=== PATIENT | female | born 1965 | race Caucasian/White ===

== ENCOUNTER 2017-08-25 16:06 | Observation (INO) | payer MEDICAID ==
[~2017-08-25] VITALS: Ht 160 cm; Wt 110.4 kg
--- NOTE | 2017-08-25 16:29 | HISTORY AND PHYSICAL REPORT ---
Demographics: Admit date: 08/25/17 Chief complaint: left shoulder pain, chest pain and dizziness PRIMARY DIAGNOSIS: chest pain Allergies: Coded Allergies: No Known Allergies (04/19/16) History of present illness: History of present illness: 51-year-old white female with significant history of hyperlipidemia, uncontrolled diabetes, hypertension and previous tobacco use presents to internal medicine clinic for evaluation of LEFT shoulder/neck pain, chest pain and dizziness. Patient reports she was sitting at work when she had acute onset of feeling "jittery" and "not herself." She checked her blood sugar which was found to be over 300. She she began having LEFT shoulder/neck pain and "a twinge of pain in the center of my chest." She went to the employee health nurse and her blood pressure was found to be normotensive. She began to feel a little bit better with rest; however symptoms did not completely resolve. An electrocardiogram was obtained in the office which showed nonspecific ST changes and a new murmur was noted on exam. Patient is a previous smoker, quit in 2013. She denies any prior episodes of LEFT shoulder/neck pain or chest pain. She does report some exertional dyspnea. Patient was admitted to acute care with telemetry for serial electrocardiograms, enzymes and further evaluation. Past medical history: Family HX Family Hx Insignificant No Diabetes Yes CAD Yes Hypertension Yes Hyperlipidemia Yes Cancer No TB No Immunization HX Ped.Immunizations UTD Yes Past Surgical HX Previous Surgery?Y LITHOTRIPSY X2 TUBAL LIGATION Current home meds: Reported Medications CHOLECALCIFEROL (VITAMIN D3) (Vitamin D3) 1,000 IUNITS PO DAILY Ascorbic Acid (Vitamin C) 500 MG PO DAILY Sitagliptin Phosphate (Januvia) 100 MG PO DAILY Cyanocobalamin (Vitamin B-12) (Vitamin B12) 1,500 MCG PO DAILY Gemfibrozil (GEMFIBROZIL 600MG) 600 MG PO BID METFORMIN HCL (Metformin) 1,000 MG PO BID LISINOPRIL/HYDROCHLOROTHIAZIDE (Lisinopril-Hctz 20-25 MG Tab) 1 TAB PO DAILY Omeprazole (Omeprazole 20MG) 20 MG PO DAILY OXYBUTYNIN CHLORIDE (Oxybutynin 5MG Tab) 5 MG PO BID Gabapentin (Gabapentin 600MG) 600 MG PO BID CETIRIZINE HCL (Cetirizine 10MG) 10 MG PO DAILY Amitriptyline Hcl (Amitriptyline) 50 MG PO QHS PRAVASTATIN SODIUM (Pravastatin Sodium) 40 MG PO QHS ASPIRIN (Aspirin) 81 MG PO DAILY Estradiol (Estrace) 0.1 MG VG DAILY UMECLIDINIUM BROMIDE (Incruse Ellipta) 62.5 MCG IH DAILY INSULIN NPL/INSULIN LISPRO (Humalog Mix 75-25 Vial) 100 UNITS SC DAILY-DM INSULIN NPL/INSULIN LISPRO (Humalog Mix 75-25 Vial) 100 UNITS SC QHS INSULIN NPL/INSULIN LISPRO (Humalog Mix 75-25 Vial) 75 UNITS SC DAILY Social Hx: Smoking HX Tobacco Yes (previous quit 2013) Type CIGARETTES Packs/day < 1 PACK Alcohol Alcohol: No Hx of Drug Use Drug Use? No Patient's support system is good Review of systems: Constitutional No: no symptoms reported. Eyes No: no symptoms reported. Ears, Nose, Mouth, Throat No no symptoms reported Respiratory No: no symptoms reported. Cardiovascular see HPI Gastrointestinal/Abdominal No no symptoms reported Genitourinary No: no symptoms reported. Musculoskeletal No: no symptoms reported. Skin No: no symptoms reported. Neurological No: see HPI. Psychiatric No: no symptoms reported. Exam: Lab data for last 24 hours: Laboratory Tests 08/26/17 0619: Triglycerides 330 H, Cholesterol 127, LDL Cholesterol 37.0, VLDL Cholesterol 66.0 H, HDL Cholesterol 24.0 L 08/26/17 0613: POC Glucose 341 *H 08/26/17 0100: Creatine Kinase 310 H, CK-MB (CK-2) Rel Index 0.5, CK and CKMB Interp 1.5, Troponin I < 0.02 08/25/17 2157: Creatine Kinase 407 H, CK-MB (CK-2) Rel Index 0.5, CK and CKMB Interp 2.2, Troponin I < 0.02 08/25/179: POC Glucose 290 H 08/25/17 1850: Creatine Kinase 451 H, CK-MB (CK-2) Rel Index 0.6, CK and CKMB Interp 2.8, Troponin I < 0.02 08/25/17 1720: Sodium 137, Potassium 3.9, Chloride 101, Carbon Dioxide 25, BUN 41 H, Creatinine 1.8 H, Estimated Creat Clear 62, Estimated GFR (MDRD) 30 L, Glucose 248 H, Calcium 9.1, Total Bilirubin 0.2, AST 43 H, ALT 55, Alkaline Phosphatase 75, Total Protein 7.6, Albumin 3.5, Globulin 4.1 H, Albumin/ Globulin Ratio 0.9 L, TSH 2.27, WBC 9.4, RBC 4.48, Hgb 12.0 L, Hct 37.4, MCV 83.5, RDW 15.1, Plt Count 233, MPV 9.8, Gran % 71.5, Gran # 6.7, Lymphocytes % 17.5, Monocytes % 6.0, Eosinophils % 4.1, Basophils % 0.9, Lymphocytes # 1.7, Monocytes # 0.6, Eosinophils # 0.4, Basophils # 0.1, PUBS MCHC 32.4, MCH 27.0 Admission vital signs: 1ST Vital Signs Result Date Time Pulse Ox 92 08/25 1715 O2 Delivery ROOM AIR 08/25 1715 B/P 105/56 08/25 1715 Temp 98.3 08/25 1715 Pulse 105 08/25 1715 Resp 18 08/25 1715 O2 Flow Rate 2 08/25 1830 Exam General appearance: normal appearance, alert, no acute distress Eyes: anicteric ENT: mucous membranes moist Neck: normal inspection, non-tender, no carotid bruit, no JVD Cardiovascular: normal sinus rhythm, regular rate & rhythm, normal peripheral pulses, murmur, trace ankle edema Respiratory: clear to auscultation ABD: non-distended, normal bowel sounds, no rebound, soft, no tenderness Genitourinary: no dysuria, no hematuria, urine clear Extremities: moves all Musculoskeletal: equal muscle strength Skin: dry, intact, normal color Neuro: 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 Chest pain Assessment/Plan Monitor telemetry. Obtain serial electrocardiograms and enzymes. Will obtain echo. Consult cardiology. Plan: See above. at 0806
[2017-08-25 17:15] VITALS: BP 105/56
[2017-08-25 17:35] LABS: LYMPH # 1.7 K/mm3 (0.7-4.5); LYMPH % 17.5 % (10-50.0)
[2017-08-25] MEDS ORDERED: VITAMIN D1000 IU PO (17:46)
[2017-08-25] MEDS ORDERED: VITAMIN C500 M1 PO (17:47)
[2017-08-25] MEDS ORDERED: JANUVIA50 MG PO (17:47)
[2017-08-25] MEDS ORDERED: VITAMIN B122500 MC1 PO (17:48)
[2017-08-25] MEDS ORDERED: GEMFIBROZIL600 MG PO (17:49)
[2017-08-25] MEDS ORDERED: METFORMIN1000 MG PO (17:49)
[2017-08-25] MEDS ORDERED: OMEPRAZOLE20 MG PO (17:50)
[2017-08-25] MEDS ORDERED: LISINOPRIL HCTZ1 TAB PO (17:50)
[2017-08-25] MEDS ORDERED: GABAPENTIN 600600 MG PO (17:51)
[2017-08-25] MEDS ORDERED: OXYBUTYNIN5 MG PO (17:51)
[2017-08-25] MEDS ORDERED: CETIRIZINE HCL10 MG PO (17:52)
[2017-08-25] MEDS ORDERED: AMITRIPTYLINE 550 MG PO (17:53)
[2017-08-25] MEDS ORDERED: ASPIRIN 81MG TA81 MG PO (17:54)
[2017-08-25] MEDS ORDERED: PRAVACHOL 40MG40 MG PO (17:54)
[2017-08-25] MEDS ORDERED: ESTRACE0.1 MG/GM VG (17:55)
[2017-08-25] MEDS ORDERED: INCRUSE EL62.5 MCG/A IH (17:56)
[2017-08-25] MEDS ORDERED: HUMALOG MIX 75/10 ML SC ×3 (17:57→18:01)
--- NOTE | 2017-08-25 19:24 | RADIOLOGY REPORT PS360 ---
CHEST(2 VIEWS-NOT PORTABLE) HISTORY: CHEST PAIN ORDERING PHYSICIAN: Aries Watters MD PATIENT AGE: 51 years COMPARISON: 06/12/2015 FINDINGS: The cardiomediastinal silhouette and pulmonary vascularity are within normal limits. There is increased density in the right infrahilar region suggesting atelectasis or infiltrate. The remaining lungs are clear. No effusions. No acute bony anomalies. IMPRESSION: Right infrahilar infiltrate.
[2017-08-25 20:04] VITALS: BP 105/60
[2017-08-25 20:05] VITALS: BP 105/60
[2017-08-25 23:46] VITALS: BP 98/54
[2017-08-26] VITALS (17 sets, daily range): BP systolic 106–143; BP diastolic 39–98
--- NOTE | 2017-08-26 07:38 | PHARMACY CLINIC NOTE ---
Patient Demographics Patient Demographics Admission date: 08/25/17 Date: 08/26/17 Time: 0737 Allergies Coded Allergies: No Known Allergies (04/19/16) HEIGHT- FT: 5 IN: 3.00 K.[id number] VTE General Information Labs: Laboratory Tests 08/25 1720 Hematology Hgb (12.2 - 16.2 g/dL) 12.0 L Hct (37.0 - 47.0 %) 37.4 Plt Count (142 - 424 K/mm3) 233 Disclaimer The following section includes nursing documentation that has been pulled in for pharmacy review. Patient's VTE score: 2 Patient's VTE Risk: VERY LOW RISK Clinical trial participant? No VTE prophylaxis F [id number] VTE prophylaxis ordered? Yes Type of prophylaxis/treatment: [place] at 0737
--- NOTE | 2017-08-26 08:13 | ACUTE CARE PROGRESS NOTE (QUA) ---
Progress Notes Subjective Date 08/26/17 Time 0745 Note Patient has not had any further left shoulder/jaw pain or chest discomfort through the night. Serial EKGs and enzymes were unremarkable. She does have a mild cough and reports upper back pain that "feels like my lungs." Alert and oriented x3. Rate and rhythm regular. Trace ankle edema. Pulses 2+ bilaterally. LS clear and equal throughout. Abdomen soft and non-tender. Patient/family reports: no complaints Nursing reports: no complaints Objective Findings Last VS-Temp:97.7 B/P:112/61 Pulse:80 Resp:18 SaO2:97 ROOM AIR Last weight lbs:237 oz:9 K.758 Method:Bed Scales Reviewed: medications, vital signs, lab results, radiology report Assessment/Plan Problem List 1. Chest pain Assessment/Plan: Echo pending. Cardiology consult today. 2. Pulmonary infiltrate in right lung on chest x-ray Assessment/Plan: Ceftriaxone and azithromycin added to cover for possible pneumonia given her significant smoking history and chronic lung disease. Patient condition Stable Plan: continue current care This inpt stay is expected to cross 2 MNs from start of care No at 0815
--- NOTE | 2017-08-26 13:44 | CONSULT NOTE ---
Standard Demographics Patient Demo Date of Consultation: 08/26/17 Referring Provider: Aries Watters MD Reason for Consultation: chest pain PRIMARY DIAGNOSIS: chest pain Problem list Problem list: Chest pain HTN HLD DM Former tobacco user Family history of ischemic heart disease History of present illness: History of present illness: This is a 51 year old patient, admitted with CP. 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 She states she was lifting bags to sew when she had sudden onset of left shoulder and neck pain. She states this started around 7am. She was also dizzy and diaphoretic. She attributed this to the work she was doing. She states these symptoms persisted all day. Then, a few hours later, she developed pain in the center of the chest. this was a sharp sensation and radiated to her back. She just did not feel good and did not feel like herself. she states she became very anxious and the symptoms worsened. nothing improved the symptoms. she had never had symptoms like this before. she was a little nauseated as well. She got off work and called her PCP. She was evaluated and sent here to the hospital. CP has resolved. She is still having pain between the shoulder blades and and pain in the left shoulder/neck. No fever, chills, vomiting, diarrhea, PND or orthopnea. Symptoms were moderate to severe. Past Medical History: General: Hypertension Yes CVA No Seizures No TB No COPD Yes Asthma No Diabetes Yes Insulin Dependent Yes Insulin Pump No Angina No FL No Hyperlipidemia Yes Cancer No MRSA No GB Disease No Past Surgical HX: Previous Surgery?Y LITHOTRIPSY X2 TUBAL LIGATION Allergies Coded Allergies: No Known Allergies (04/19/16) Home medications: Reported Medications CHOLECALCIFEROL (VITAMIN D3) (Vitamin D3) 1,000 IUNITS PO DAILY Ascorbic Acid (Vitamin C) 500 MG PO DAILY Sitagliptin Phosphate (Januvia) 100 MG PO DAILY Cyanocobalamin (Vitamin B-12) (Vitamin B12) 1,500 MCG PO DAILY Gemfibrozil (GEMFIBROZIL 600MG) 600 MG PO BID METFORMIN HCL (Metformin) 1,000 MG PO BID LISINOPRIL/HYDROCHLOROTHIAZIDE (Lisinopril-Hctz 20-25 MG Tab) 1 TAB PO DAILY Omeprazole (Omeprazole 20MG) 20 MG PO DAILY OXYBUTYNIN CHLORIDE (Oxybutynin 5MG Tab) 5 MG PO BID Gabapentin (Gabapentin 600MG) 600 MG PO BID CETIRIZINE HCL (Cetirizine 10MG) 10 MG PO DAILY Amitriptyline Hcl (Amitriptyline) 50 MG PO QHS PRAVASTATIN SODIUM (Pravastatin Sodium) 40 MG PO QHS ASPIRIN (Aspirin) 81 MG PO DAILY Estradiol (Estrace) 0.1 MG VG DAILY UMECLIDINIUM BROMIDE (Incruse Ellipta) 62.5 MCG IH DAILY INSULIN NPL/INSULIN LISPRO (Humalog Mix 75-25 Vial) 100 UNITS SC DAILY-DM INSULIN NPL/INSULIN LISPRO (Humalog Mix 75-25 Vial) 100 UNITS SC QHS INSULIN NPL/INSULIN LISPRO (Humalog Mix 75-25 Vial) 75 UNITS SC DAILY Current Medications: Current Medications Nitroglycerin 0 .STK-MED ONE IV (DC) Diphenhydramine HCl 0 .STK-MED ONE .ROUTE (DC) Heparin Sodium (Beef Lung) 0 .STK-MED ONE .ROUTE (DC) Heparin Sodium/Sodium Chloride 1,500 ML .STK-MED ONE IV (DC) Lidocaine HCl 0 .STK-MED ONE .ROUTE (DC) Sodium Chloride 1,000 ML .STK-MED ONE IV (DC) Verapamil HCl 0 .STK-MED ONE .ROUTE (DC) Sodium Chloride 1,000 ML .STK-MED ONE IV (DC) Diphenhydramine HCl 50 MG ONCE ONE IV (DC) Azithromycin 500 MG 1000 IV Sodium Chloride 250 ML Aspirin 81 MG DAILY PO Ceftriaxone Sodium 1 GM DAILY IV Sodium Chloride 50 ML Diagnostic Test (Pha) 1 EACH W/MEALS&HS FS Gabapentin 600 MG BID PO Insulin Human [rDNA origin] SEE ADMIN CRITERIA W/MEALS&HS SC Gabapentin 600 MG ONCE ONE PO (DC) Sodium Chloride 1,000 ML .Q10H IV Aspirin 0 .STK-MED ONE .ROUTE (DC) Aspirin 324 MG ONCE ONE PO (DC) Sodium Chloride 10 ML PRN PRN IV Miscellaneous Information 1 EACH PRN PRN XX Nicotine 21 MG DAILYP PRN TD Immunization HX Ped.Immunizations UTD Yes Flu [id number] Pneumonia RECEIVED IN PAST TB Test in last year No Family history Family HX Diabetes Yes CAD Yes Hypertension Yes Hyperlipidemia Yes Cancer No TB No Comment Sister of [place] at 42. Brother of [place] at 47 and had WPW. Social Hx: Smoking HX Tobacco Yes (previous; quit 2013) Type CIGARETTES Packs/day < 1 PACK Are you/the child exposed to second-hand smoke: No Alcohol Alcohol: No Hx of Drug Use Drug Use? No Patient's support system is good Review of systems: Constitutional diaphoresis. No: see HPI, chills, fever, malaise, weakness, other. Eyes No: blindness, blurred vision, drainage, decreased acuity, foreign body sensation, inflammation, pain, photophobia, previous injury, shadows, tunnel vision, vision change, contact lenses, glasses, other. Ears, Nose, Mouth, Throat No ear pain, No ear discharge, No nose pain, No drooling/excessive saliva, No nose discharge, No nose congestion, No epistaxis, No mouth pain, No mouth swelling, No tongue swelling, No dental caries, No loose teeth, No missing teeth , No throat pain, No throat swelling, No other Respiratory No: cough, orthopnea, shortness of breath, SOB with excertion, SOB at rest, stridor, wheezing, other. Cardiovascular see HPI, chest pain, palpitations Gastrointestinal/Abdominal No abdomen distended, No abdominal pain, No blood streaked bowels, No constipated, No diarrhea, No difficulty swallowing, nausea, No poor appetite, No poor fluid intake, No rectal bleeding, No vomiting, No other Genitourinary No: discharge, abnormal vaginal bleeding, normal menstrual period, vaginal discharge, dysuria, frequency, hesitancy, hematuria, dyspareunia, pain, penis pain, pelvic pain, scrotal/testicular pain, hx stds, genital lesions, other, , labia tenderness, penis tenderness, scrotal tenderness. Musculoskeletal No: back pain, gout, joint pain, joint swelling, muscle pain, muscle stiffness, neck pain, other. Skin No: change in color, change in hair/nails, dryness, lesions, lumps, rash, other. Neurological No: headache, numbness, tingling, tremors, weakness, parasthesia, seizure disorder. Psychiatric No: anxious, depressed, other, withdrawn. Exam: Admission Vital Signs: 1ST Vital Signs Result Date Time Pulse Ox 92 10/09 1715 O2 Delivery ROOM AIR 08/25 1715 B/P 105/56 08/25 1715 Temp 98.3 08/25 1715 Pulse 105 08/25 1715 Resp 18 08/25 1715 O2 Flow Rate 2 08/25 1830 Last Vital Signs: Vital Signs Result Date Time Pulse Ox 96 08/26 1200 B/P 110/59 08/26 1200 O2 Delivery ROOM AIR 08/26 1200 Temp 97.8 08/26 1200 Pulse 82 08/26 1200 Resp 16 08/26 1200 O2 Flow Rate 2 08/26 1122 Exam General appearance: normal appearance, alert, active, awake, face symmetric, no acute distress, well-developed, well-nourished, obese Eyes: normal exam, anicteric, conjunctiva clear, pupils reactive to light, PERRLA ENT: normal exam, mucous membranes moist, nose normal, pharynx normal Neck: normal inspection, non-tender, no carotid bruit, no JVD, full range of motion, range of motion, supple Cardiovascular: normal exam, no JVD, no ectopics, normal sinus rhythm, PMI normal, regular rate & rhythm, no murmur, normal peripheral pulses, no peripheral edema, no rub Respiratory: normal exam, aerating well, clear to auscultation, chest non- tender, good air movement, normal breath sounds, no respiratory distress ABD: normal exam, non-distended, normal bowel sounds, no rebound, soft, no tenderness, no guarding, no organomegaly, no palpable mass Extremities: normal exam, full range of motion, moves all, normal capillary refill, no peripheral edema, femoral pulses (present), warm, no pedal edema Musculoskeletal: normal exam, equal muscle strength, motor intact, normal gait, sensation intact Skin: normal exam, dry, intact, normal color, no gross abnormalities, warm Neuro: normal exam, 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, 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, intact, no deficit, normal mood/affect, oriented, speech clear Laboratory data: Laboratory Tests 08/26/17 1135: POC Glucose 262 H 08/26/17 0619: Triglycerides 330 H, Cholesterol 127, LDL Cholesterol 37.0, VLDL Cholesterol 66.0 H, HDL Cholesterol 24.0 L 08/26/17 0613: POC Glucose 341 *H 08/26/17 0100: Creatine Kinase 310 H, CK-MB (CK-2) Rel Index 0.5, CK and CKMB Interp 1.5, Troponin I < 0.02 08/25/172156: Creatine Kinase 407 H, CK-MB (CK-2) Rel Index 0.5, CK and CKMB Interp 2.2, Troponin I < 0.02 08/25/172028: POC Glucose 290 H 08/25/17 1850: Creatine Kinase 451 H, CK-MB (CK-2) Rel Index 0.6, CK and CKMB Interp 2.8, Troponin I < 0.02 08/25/17 1720: Sodium 137, Potassium 3.9, Chloride 101, Carbon Dioxide 25, BUN 41 H, Creatinine 1.8 H, Estimated Creat Clear 62, Estimated GFR (MDRD) 30 L, Glucose 248 H, Calcium 9.1, Total Bilirubin 0.2, AST 43 H, ALT 55, Alkaline Phosphatase 75, Total Protein 7.6, Albumin 3.5, Globulin 4.1 H, Albumin/ Globulin Ratio 0.9 L, TSH 2.27, WBC 9.4, RBC 4.48, Hgb 12.0 L, Hct 37.4, MCV 83.5, RDW 15.1, Plt Count 233, MPV 9.8, Gran % 71.5, Gran # 6.7, Lymphocytes % 17.5, Monocytes % 6.0, Eosinophils % 4.1, Basophils % 0.9, Lymphocytes # 1.7, Monocytes # 0.6, Eosinophils # 0.4, Basophils # 0.1, PUBS MCHC 32.4, MCH 27.0 Additional information: EKG is SR with PRWP and a rate of 102. Plan: Assessment: Impression: 1. [place] 2. HTN 3. HLD 4. DM 5. Abnormal EKG 6. Family history of ischemic heart disease 7. Former smoker Recommendations: Plan: 1. Patient was admitted to the hospital with chest pain. Her symptoms are felt to be consistent with unstable angina. The patient does have an abnormal electrocardiogram. She has ruled out for myocardial infarction. However, her symptoms persist. She continues to have pain between her shoulder blades as well as in her LEFT neck and shoulder. The patient has a significant family history of ischemic heart disease. Her sister at the age of 42 from a myocardial infarction and her brother at the age of 47 from myocardial infarction. She is a former tobacco user stop smoking in 2013. She is diabetic as well. Given the patient's high risk factors for disease will proceed with LEFT cardiac catheterization today to evaluate her coronary arteries. 2. The patient has been educated on the risks and benefits of proceeding with LEFT cardiac catheterization. The patient verbalized understanding and is agreeable in proceeding with LEFT period catheterization. 3. Nothing by mouth. 4. Her blood pressure is well controlled. 5. Her LDL goal is less than 100. Her LDL is currently 37. 6. The patient is a diabetic. This does place her at high risk for coronary artery disease. The patient does need aggressive control of her diabetes. Will defer this to the hospitalist. 7. The patient is a former tobacco user. She did stop smoking in 2013. This does place her risk for coronary disease. 8. Her echocardiogram is currently pending. 9. Further recommendations will be made pending the patient's response to treatment and the results of her LEFT cardiac catheterization today. Thank you for the opportunity to help her chest pain care of this patient. at 0831
--- NOTE | 2017-08-26 15:25 | RADIOLOGY REPORT PS360 ---
CARDIAC CATHETERIZATION DATE OF CATHETERIZATION:08/26/2017 3:14 PM PROCEDURES: 1. Left heart catheterization 2. Left ventriculogram 3. Selective coronary angiogram 4. Drug-eluting stent deployment to the proximal and distal LAD 5. Drug-eluting stent deployment to the proximal large first diagonal artery INDICATION FOR TEST: 1. Unstable angina 2. Coronary artery disease Informed consent was obtained prior to the procedure. COMPLICATIONS: None ESTIMATED BLOOD LOSS: Less than 10 ml. TECHNIQUE: One percent lidocaine used to anesthetize the right anterior aspect of the wrist. The right radial artery was accessed via the Seldinger technique. A 6 [place] sheath was placed in the right radial artery. 2.5 mg of verapamil, 800 mcg of nitroglycerin and 5000 U Heparin were given through the arterial sheath. The trap catheter was used to perform left heart catheterization left ventriculogram and selective coronary angiogram. At the end of the diagnostic angiogram and additional 5000 units of heparin was administered intravenously along with 180 mg of oral Brilinta. The first ACT measured 355 seconds. An [employer] left guide catheter was used intubate the left main artery and choice PT wire is were placed down the LAD and first diagonal artery. A 2 mm x 15 mm balloon was deployed at 20 ana laura predilate in the first diagonal artery. Following this a 2.25 x 26 mm resolute [place] stent was deployed at 26 ana laura reducing the stenosis to 0%. VENTURA-3 flow was present after the procedure with VENTURA II flow prior to the procedure. The apparatus was removed. A 3 mm x 34 mm resolute [place] stent was then placed in the proximal LAD immediately after the first diagonal artery and deployed at 22 ana laura. Distally a 2 mm x 15 mm balloon was deployed at 15 ana laura in order to predilate the stenosis. A 2.25 x 30 mm resolute [place] stent was deployed distally at 12 ana laura reducing the 90% stenosis to 0% giving excellent angiographic results with VENTURA-3 flow down the entire LAD before and after the procedure the closing ACT measured 226 seconds therefore an additional 4000 units of heparin was administered intravenously. The sheath was removed good hemostasis was achieved using TR banding patient was transferred to the postop holding area in stable condition ANGIOGRAPHIC RESULTS: 1. The left main artery normal 2. The left anterior descending artery has a proximal critical 80-90% stenosis immediately after a large first diagonal artery and a distal 90% stenosis. The first diagonal artery has a critical 99% stenosis with VENTURA II flow. At the end of the procedure both the LAD and diagonal artery were widely patent. 3. The circumflex artery is a dominant vessel and has mild luminal irregularities. 4. The right coronary artery is a nondominant vessel and has proximal and mid vessel 90% stenoses. This is a 2.5 mm vessel 5. The CAMEJO ventriculogram reveals normal 65% 6. The left ventricular end-diastolic pressure 25 mmHg IMPRESSION: 1. Critical proximal and distal LAD combined with critical proximal first diagonal artery disease 2. Successful stenting of the proximal and distal LAD critical disease reduced to 0% with 1 drug-eluting stent proximally and 1 drug-eluting stent distally 3. Successful stenting of a large proximal first diagonal artery critical disease reduced to 0% with 1 drug-eluting stent 4. Persistent severe disease in a small nondominant right coronary artery 5. Normal ejection fraction 6. Mildly elevated LVEDP PLAN: 1. Brilinta and aspirin 2. LDL less than 55 to be achieved with high intensity statin 3. Risk factor modification 4. Cardiac rehabilitation 5. Avoidance of tobacco products 6. Patient has chronic kidney disease with creatinine of 1.8. I would recommend workup for her coronary disease per Dr. Mckinney 7. If tolerates I would recommend an JONAH inhibitor
--- NOTE | 2017-08-26 19:40 | RADIOLOGY REPORT PS360 ---
PROCEDURE: INDICATIONS FOR THE TEST: Chest pain X COPD Heart MurmurX Tobacco Smoking Palpitations Fatigue Syncope Edema HypertensionXDiabetes MellitusX Rheumatic Fever SOB MARTÍNEZ ObesityXHyperlipidemiaX Family History HD Additional History PATIENT INFORMATION HEIGHT: 62 WEIGHT:237 GENDER: Female B/P:110/70 2-D/M-MODE INTERPRETATION: 2-D MEASUREMENTS OBSERVED VALUES IN CMS Right Ventricular Dimension (RVDd) 2.2 Interventricular Septum (Thickness)(IVsd) 1.6 Left Ventricular Internal Dimensions(LVIDd) 4.9 Left Ventricular Posterior Wall (Thickness)(LVPWd) .9 Aortic Root 2.7 Aortic Cusp Separation 1.3 Left Atrial Dimensions (LAD) 4.0 2D 1. Left atrium is mildly enlarged, left ventricle is normal size, there is mild concentric left ventricular hypertrophy present, visually estimated ejection fraction of 55% with no obvious regional wall motion abnormality. Endocardial surfaces are somewhat poorly visualized. 2. The right atrium and right ventricle are normal size and contractility. 3. The aortic valve is thickened and calcified leaflet continue to display mobility. 4. The mitral valve leaflets are thickened, there is mitral annular calcification present, the chordal structures are also thickened and calcified. 5. The tricuspid valve is grossly normal. 6. The pulmonic valve is poorly visualized. 7. There is trivial pericardial effusion noted. DOPPLER INTERROGATION: Doppler interrogation of the aortic, mitral and tricuspid valvular presence of mild mitral and tricuspid regurgitation, tricuspid regurgitant jet velocity is insufficient for calculation of the right ventricle is pressure, grade 1 diastolic dysfunction seen with tissue Doppler evidence of raised left atrial pressure. CONCLUSION: 1. Mildly enlarged left atrium, normal left ventricular size, mild concentric left ventricular hypertrophy present, visually estimated ejection fraction 55% with no obvious regional wall motion abnormality, grade 1 diastolic dysfunction seen with tissue Doppler evidence of raised left atrial pressure. 2. Thickened and calcified aortic valve without Doppler evidence of aortic stenosis or aortic insufficiency 3. Mild mitral and tricuspid regurgitation. 4. Trivial pericardial effusion noted. The
[2017-08-27] VITALS: BP 107/49
[2017-08-27 02:00] VITALS: BP 107/43
[2017-08-27 04:03] VITALS: BP 103/58
[2017-08-27 04:36] VITALS: BP 103/58
[2017-08-27 06:03] VITALS: BP 109/51
[2017-08-27] MEDS ORDERED: INVOKANA300 MG PO (07:12)
[2017-08-27] MEDS ORDERED: LIPITOR40 MG PO (07:12)
[2017-08-27] MEDS ORDERED: LISINOPRIL 20MG20 MG PO (07:13)
[2017-08-27] MEDS ORDERED: ZITHROMAX Z-PA250 M2 PO (07:13)
[2017-08-27] MEDS ORDERED: BRILINTA90 M1 PO (07:15)
--- NOTE | 2017-08-27 07:19 | DISCHARGE SUMMARY STANDARD ---
Demographics Admit date: 08/25/17 Discharge date: 08/27/17 History of present illness History of present illness This is a 51 year old patient, admitted with CP. 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 She states she was lifting bags to sew when she had sudden onset of left shoulder and neck pain. She states this started around 7am. She was also dizzy and diaphoretic. She attributed this to the work she was doing. She states these symptoms persisted all day. Then, a few hours later, she developed pain in the center of the chest. this was a sharp sensation and radiated to her back. She just did not feel good and did not feel like herself. she states she became very anxious and the symptoms worsened. nothing improved the symptoms. she had never had symptoms like this before. she was a little nauseated as well. She got off work and called her PCP. She was evaluated and sent here to the hospital. CP has resolved. She is still having pain between the shoulder blades and and pain in the left shoulder/neck. No fever, chills, vomiting, diarrhea, PND or orthopnea. Symptoms were moderate to severe. Hospital Course Hospital Course: Patient was admitted, ruled out for myocardial infarction by enzyme and electrocardiogram criteria. Did well. Chest x-ray showed a perihilar infiltrate and macrolide antibiotics were started. Cardiology evaluated her and because of her significant risk factors and anginal pattern she was subjected a LEFT heart cath which showed 3 vessel critical disease and 3 stents were placed. The interested reader is referred to the cardiology cath note for details. Briefly, patient tolerated this procedure well and last night did well and felt much better with no chest pain, better overall fatigue issues and no dyspnea. This morning she has clear lungs, regular heart rate, soft abdomen, alert. Oriented 3. She will be sent home today. Several medication changes will be noted, specifically she'll be taken off metformin and lisinopril/hydrochlorothiazide because of slightly increased creatinine. She will be placed on Invokana, as well as her insulin for diabetes. She will be placed on plain lisinopril, and Brilinta and high potency statin for her cardiac disease. She will be sent home on azithromycin for the infiltrate/acute bronchopneumonia. She will be seen in our offices in [place] in one week. Labs one day before to monitor creatinine and blood count. Discharge diagnoses Problem List 1. Chest pain 2. Pulmonary infiltrate in right lung on chest x-ray Medications Medications: Discharge meds are as noted. Follow up Follow up in office in: 7 DAYS with: Aries Watters MD at [id number]
[2017-08-27 08:40] VITALS: BP 109/51
== END 2017-08-27 08:40 | disposition home or self-care (01) ==
LOC: 2ND 16:06
PROVIDERS: Internal Medicine; Internal Medicine Adolescent Medicine
PROC: B2111ZZ Fluoroscopy of Multiple Coronary Arteries using Low Osmolar Contrast (ICD-10-PCS; 2017-08-26)
PROC: B2151ZZ Fluoroscopy of Left Heart using Low Osmolar Contrast (ICD-10-PCS; 2017-08-26)
PROC: 027135Z Dilation of Coronary Artery, Two Arteries with Two Drug-eluting Intraluminal Devices, Percutaneous Approach (ICD-10-PCS; 2017-08-26)
PROC: 4A023N7 Measurement of Cardiac Sampling and Pressure, Left Heart, Percutaneous Approach (ICD-10-PCS; principal; 2017-08-26 14:45)
DX: I25.119 Atherosclerotic heart disease of native coronary artery with unspecified angina pectoris (principal); Z72.0 Tobacco use; N28.9 Disorder of kidney and ureter, unspecified; I10 Essential (primary) hypertension; J44.9 Chronic obstructive pulmonary disease, unspecified; E11.9 Type 2 diabetes mellitus without complications; J18.9 Pneumonia, unspecified organism
CPT/HCPCS: C1725; C1760; C1769; C1876; G0378; J0456; J1644; Q9967